=== PATIENT | male | born 1955 | race Caucasian/White ===

== ENCOUNTER 2017-08-30 01:13 | Emergency (ER) | payer MEDICARE, MEDICAID ==
[~2017-08-30] VITALS: Ht 185.4 cm; Wt 75.0 kg
[~2017-08-30 01:13] MED LIST: ALENDRONATE70 MG PO; AMITRIPTYLIN25 MG PO; AMLODIPINE BESYL5 MG PO; APAP PO; BACLOFEN10 MG OR; BENADRYL 50MG C50 MG PO; CEPHALEXIN500 MG PO; COMMIT4 MG PO; DEPAKOTE ER500 MG OR; DEPAKOTE500 MG PO; DIAZEPAM10 MG PO; DIVALPROEX500 MG PO; ELIMITE60 GM EX; ENOXAPARIN40 MG/0.1 SC; FLEXERIL PO; HYDROCO PO; HYDROCODONE/ACE1 TA1 PO; HYDROXYZINE PAM25 MG PO; KEFLEX500 MG PO; LISINOPRIL5 MG PO; LORTAB 10 OR; LOSARTAN POT50 MG PO; LYRICA100 MG OR; LYRICA300 MG OR; MAXALT10 MG PO; METHADONE5 M1 OR; MORPHINE SUL30 M3 OR; MORPHINE SUL30 M3 PO; MORPHINE SUL60 MG OR; NORCO1 TA1 PO; PERCOCET1 TA4 PO; PREDNISODT10 PO; QUETIAPINE FUM100 MG PO; SEROQUEL XR300 MG OR; SEROQUEL100 MG PO; SOMA350 MG OR; SPIRIVA IN; SULFAMETHOXAZOL1 TA2 PO; SYMBICORT1 AE1 IN; VENTOLIN HFA IN; VITAMIN D50000 UNT PO
[2017-08-30 01:45] VITALS: BP 60/39
== END 2017-08-30 02:01 | disposition left against medical advice (07) ==
LOC: ED 01:13
DX: R07.9 Chest pain, unspecified (principal); I10 Essential (primary) hypertension; F31.9 Bipolar disorder, unspecified; I48.91 Unspecified atrial fibrillation; F17.210 Nicotine dependence, cigarettes, uncomplicated; Z91.19 Patient's noncompliance with other medical treatment and regimen